=== PATIENT | male | born 1940 | race Caucasian/White ===

== ENCOUNTER 2017-04-11 05:07 | Day surgery (SDC) | payer OTHER ==
[~2017-04-11] VITALS: Ht 172.7 cm; Wt 81.6 kg
[~2017-04-11 05:07] MED LIST: ADULT ASPIRIN R81 MG PO; ALPHAGAN 0100 DROP/5 LEFT EYE; CO Q-10100 MG PO; HYDROCHLOROTHIA25 MG PO; LOPRESSOR25 MG PO; POLY-VITAMIN1 EACH PO; PRINIVIL5 MG PO; PROAIR HFA8.5 GM IH; PROVENTIL,2.5 MG/0.5 IH; PROZAC40 MG PO; TRUSOPT 2%200 DROP/2 LEFT EYE; VITAMIN D32000 UNI1 PO; VOLTAREN 0.1%2.5 ML LEFT EYE; WELLBUTRIN SR150 MG PO; ZOCOR40 MG PO
[2017-04-11 05:49] VITALS: BP 165/71
[2017-04-11 10:05] VITALS: BP 140/62
[2017-04-11 10:40] VITALS: BP 129/84
== END 2017-04-11 10:50 | disposition home or self-care (01) ==
LOC: SDC 05:07
DX: H35.342 Macular cyst, hole, or pseudohole, left eye (principal); H33.012 Retinal detachment with single break, left eye; H35.372 Puckering of macula, left eye; I25.10 Atherosclerotic heart disease of native coronary artery without angina pectoris; I10 Essential (primary) hypertension; E78.5 Hyperlipidemia, unspecified; J44.9 Chronic obstructive pulmonary disease, unspecified; Z79.82 Long term (current) use of aspirin; F17.210 Nicotine dependence, cigarettes, uncomplicated; Z95.5 Presence of coronary angioplasty implant and graft
CPT/HCPCS: 80048; 85014; 85018; J0690; J1100; J2250; J2795; J3010; J3300